=== PATIENT | female | born 1965 | race African-American/Black ===

== ENCOUNTER 2021-01-05 09:13 | Outpatient (REF) | payer OTHER, SELFPAY ==
[2021-01-05 11:21] LABS: SARS COV2 PCR INHOUSE NEGATIVE (Negative)
== END 2021-01-05 09:14 | disposition home or self-care (01) ==
LOC: HO.LAB 09:13
PROVIDERS: Visit Provider Internal Medicine
DX: Z20.822 Contact with and (suspected) exposure to COVID-19 (principal)
CPT/HCPCS: C9803; U0003